=== PATIENT | female | born 1935 | race Caucasian/White ===

== ENCOUNTER 2022-04-24 13:06 | Inpatient (IN) ==
[2022-04-24] MEDS: *HR* Dextrose 50 % in Water (Syg) 50 ML SYRINGE ONE ×2 (15:35→15:51)
[2022-04-24] MEDS ORDERED: Ringers Solution, Lactated 1,000 ML ONE (15:40)
[2022-04-24] MEDS ORDERED: Ringers Solution, Lactated 1,000 ML IVC ONE (15:44)
[2022-04-24] MEDS ORDERED: D5% in Water 1,000 ML IVC SCH (15:45)
[2022-04-24] MEDS ORDERED: Dextrose Gel 15 GM/37.5 ML TUBE PO ONE (16:13)
[2022-04-24] MEDS ORDERED: Dextrose 4 GM Chewable Tablets PO PRN (16:15)
[2022-04-24] MEDS ORDERED: D10% in Water 500 ML IVC SCH ×2 (16:30→20:14)
[2022-04-24] MEDS ORDERED: Naloxone 0.4 MG/ML INJ IVP PRN (17:15)
[2022-04-24] MEDS ORDERED: Acetaminophen 325 MG TABLET PO PRN (17:15)
[2022-04-24] MEDS ORDERED: Ondansetron ODT 4 MG TAB.RAPDIS SL PRN (17:15)
[2022-04-24] MEDS ORDERED: *HR* OxyCODONE Immed Rel 5 MG TABLET PO PRN (17:15)
[2022-04-24] MEDS ORDERED: GI Cocktail 40 ML EACH PO ONE (17:50)
[2022-04-24] MEDS ORDERED: *HR* Dextrose 50 % in Water (Syg) 50 ML SYRINGE ONE (17:55)
[2022-04-24] MEDS ORDERED: *HR* Dextrose 50 % in Water (Syg) 50 ML SYRINGE IVP ONE ×4 (18:02→21:07)
[2022-04-24 18:19] LABS: Albumin 3.5 g/dL (3.5-5.7); Albumin/Globulin Ratio 1.3 (1.1-2.2); Bilirubin,Total 0.4 mg/dL (0.3-1.0); Calcium 8.4 mg/dL (8.6-10.3); Globulin 2.7 g/dL (2.4-3.5); Total Protein 6.2 g/dL (6.4-8.9)
[2022-04-24] MEDS: cefTRIAXone 1,000 MG in 0.9 % Sodium Chloride 10 ML IVP SCH (18:56)
[2022-04-24 19:02] LABS: Creatine Kinase 42 Units/L (30-223); Lipase 60 Units/L (11-82); Troponin I < 0.03 ng/mL (< 0.04)
[2022-04-24] MEDS: D10% in Water 500 ML IVC SCH ×2 (21:04→22:14)
[2022-04-24 21:49] LABS: Calcium 8.3 mg/dL (8.6-10.3); Potassium 4.6 mEq/L (3.5-5.1)
[2022-04-24] MEDS ORDERED: Pantoprazole 40 MG VIAL IVP ONE (21:54)
[2022-04-24] MEDS: Simethicone 80 MG TAB.CHEW PO PRN (22:14)
[2022-04-24] MEDS: rOPINIRole 1 MG TABLET PO SCH (23:20)
[2022-04-24] MEDS ORDERED: methylPREDNISolone 125 MG/2 ML VIAL IVP ONE (23:45)
[2022-04-25] MEDS ORDERED: Water for inj. (sterile) 10 ML ONE ×2 (01:01→03:54)
[2022-04-25] MEDS: D10% in Water 500 ML IVC SCH (01:35)
[2022-04-25] MEDS: WATER IVC SCH ×2 (02:46→08:20)
[2022-04-25] MEDS: D10 IVC SCH ×2 (02:46→08:20)
[2022-04-25] MEDS: DEXTROSE 50% IVC SCH ×2 (02:46→08:20)
[2022-04-25 04:27] LABS: Basophils % 0.1 %; Eosinophils % 0.1 %; Hematocrit 38.8 % (35.3-44.9); Hemoglobin 12.3 g/dL (11.5-15.4); Immature Granulocytes % 0.5 % (0-4); Lymphocytes # 0.6 K/mcL (0.6-4.6); Lymphocytes % 3.7 %; Mean Corpuscular HGB Conc 31.7 g/dL (31.6-35.5); Mean Corpuscular Hemoglobin 27.6 pg (28.0-33.3); Mean Platelet Volume 10.6 fL (9.4-12.4); Monocytes # 0.2 K/mcL (0.0-1.3); Monocytes % 1.1 %; Platelet Count 198 K/mcL (140-400); Red Blood Count 4.46 M/mcL (3.82-4.97); Red Cell Distribution Width 16.4 % (11.5-14.5); Segmented Neutrophils % 94.5 %
[2022-04-25 04:34] LABS: Neutrophils # 14.2 K/mcL (1.6-8.9)
[2022-04-25 05:30] LABS: Albumin 3.5 g/dL (3.5-5.7); Albumin/Globulin Ratio 1.1 (1.1-2.2); Bilirubin,Total 0.4 mg/dL (0.3-1.0); Calcium 8.7 mg/dL (8.6-10.3); Chol/HDL Ratio 2.7 (0-4.9); Globulin 3.1 g/dL (2.4-3.5); Magnesium 1.8 mg/dL (1.6-2.6); Phosphorous 1.5 mg/dL (2.7-4.5); Total Protein 6.6 g/dL (6.4-8.9)
[2022-04-25 05:37] LABS: Thyroid Stimulating Hormone 1.714 mcIU/mL (0.340-5.600)
[2022-04-25] MEDS: Simethicone 80 MG TAB.CHEW PO PRN ×2 (08:20→20:04)
[2022-04-25] MEDS: cefTRIAXone 1,000 MG in 0.9 % Sodium Chloride 10 ML IVP SCH (08:20)
[2022-04-25] MEDS: rOPINIRole 1 MG TABLET PO SCH ×2 (08:30→20:03)
[2022-04-25 15:35] LABS: Calcium 9.1 mg/dL (8.6-10.3); Potassium 5.7 mEq/L (3.5-5.1)
[2022-04-26 00:18] LABS: Calcium 8.7 mg/dL (8.6-10.3); Magnesium 1.7 mg/dL (1.6-2.6); Potassium 4.6 mEq/L (3.5-5.1)
[2022-04-26 04:37] LABS: Basophils % 0.4 %; Eosinophils # 0.1 K/mcL (0.0-0.6); Eosinophils % 0.7 %; Hematocrit 38.6 % (35.3-44.9); Hemoglobin 12.4 g/dL (11.5-15.4); Immature Granulocytes % 0.5 % (0-4); Lymphocytes % 20.6 %; Mean Corpuscular HGB Conc 32.1 g/dL (31.6-35.5); Mean Corpuscular Hemoglobin 28.1 pg (28.0-33.3); Mean Corpuscular Volume 87.3 fL (83.0-100.0); Mean Platelet Volume 10.5 fL (9.4-12.4); Monocytes # 0.9 K/mcL (0.0-1.3); Neutrophils # 6.7 K/mcL (1.6-8.9); Platelet Count 202 K/mcL (140-400); Red Blood Count 4.42 M/mcL (3.82-4.97); Red Cell Distribution Width 16.9 % (11.5-14.5); Segmented Neutrophils % 68.8 %; White Blood Count 9.8 K/mcL (4.3-11.1)
[2022-04-26 04:57] LABS: BUN/Creatinine Ratio 30 (6-26); Blood Urea Nitrogen 30 mg/dL (8-23); Calcium 8.8 mg/dL (8.6-10.3); Carbon Dioxide 23 mEq/L (23-29); Chloride 106 mEq/L (98-107); Glucose 134 mg/dL (70-105); Osmolality,Calculated 288 (280-300); Potassium 4.6 mEq/L (3.5-5.1); Sodium 135 mEq/L (136-145); eGFR For African Americans > 60 (> 60); eGFR For Non-African Americans 52 (> 60)
[2022-04-26] MEDS ORDERED: *HR* Heparin 5,000 UNIT/ML VIAL SQ SCH (06:00)
[2022-04-26 07:41] VITALS: TEMP 98.1
[2022-04-26] MEDS ORDERED: rOPINIRole 3 MG, rOPINIRole 1 MG PO SCH (09:00)
[2022-04-26 11:22] VITALS: BP 104/49
[2022-04-26 15:53] VITALS: PULSE 88; O2SAT 94
[2022-04-28 09:33] LABS: Insulin Antibody <0.4 U/mL (0.0-0.4)
== END 2022-04-26 16:50 | disposition home or self-care (01) | DRG 640 ==
LOC: 2NENU → SUATTDRO 19:20 → 2NNU 20:53
PROVIDERS: ADMIT Family Medicine; ATTEND Student in an Organized Health Care Education/Training Program